=== PATIENT | female | born 1980 | race American Indian/Alaskan Native ===

== ENCOUNTER 2025-01-06 10:57 | Emergency (ER) | payer MEDICAID, OTHER ==
[2025-01-06] MEDS ORDERED: Sodium Chloride 0.9% 10 ML Syringe FLUSH PRN ×2 (11:16)
[2025-01-06 11:28] LABS: BASOPHILS PERCENT AUTO 0.6 % (0.0-1.0); EOSINOPHILS PERCENT AUTO 6.1 % (1.0-3.0); LYMPHOCYTES PERCENT AUTO 28.2 % (20.5-50.1); MONOCYTES PERCENT AUTO 9.8 % (2-8); NEUTROPHILS PERCENT AUTO 55.3 % (42.2-75.2); PLATELET COUNT,PLT 75 10^3/uL (150-450); RED BLOOD CELL COUNT 2.24 10^6/uL (4.2-5.4); WHITE BLOOD CELL COUNT,WBC 3.3 10^3/uL (5.0-10.0)
[2025-01-06 11:45] LABS: INR 1.8 (0.9-1.2)
[2025-01-06 12:03] LABS: ALANINE AMINOTRANSFERASE,ALT 12.0 U/L (14-59); ASPARTATE AMNIOTRANSFERASE,AST 36.0 U/L (15-37); BILIRUBIN TOTAL 5.3 mg/dL (0.2-1.0); BLOOD UREA NITROGEN,BUN 6.0 mg/dL (7-18); CARBON DIOXIDE,CO2 23.0 mmol/L (21-32); CHLORIDE,CL 110.0 mmol/L (98-107); CREATININE 0.86 mg/dL (0.55-1.02); EST CRCL DRUG DOSING (CG) 67.61 mL/min; GLUCOSE RANDOM 90.0 mg/dL (70-99); POTASSIUM,K 2.9 mmol/L (3.5-5.1); PROTEIN TOTAL,TP 7.3 g/dL (6.4-8.2); SODIUM,NA 139.0 mmol/L (136-145)
[2025-01-06 12:13] LABS: A/G RATIO 0.3; ESTIMATED GFR 84.0 mL/min (>=60)
[2025-01-06] MEDS: Potassium Chloride 10 MEQ Tab.ER PO ONE (13:24)
[2025-01-06] MEDS: Ondansetron 4 MG Tab.DIS PO ONE (16:15)
[2025-01-06] MEDS: Ondansetron 4 MG Tab.DIS ONE (16:39)
[2025-01-06] MEDS: Ondansetron 4 MG/2 ML SDV ONE (16:39)
[2025-01-06] MEDS: LORazepam 2 MG/ML SDV IVPUSH ONE (16:55)
[2025-01-06] MEDS: LORazepam 2 MG/ML SDV ONE (17:14)
[2025-01-06 18:10] LABS: LACTIC ACID 4.1 mmol/L (0.4-2.0)
== END 2025-01-06 19:44 ==
LOC: DL.ED 10:57
DX: A41.9 Sepsis, unspecified organism (principal); K74.60 Unspecified cirrhosis of liver; E87.6 Hypokalemia; Z79.899 Other long term (current) drug therapy
CPT/HCPCS: 36415; 71045; 80053; 83605; 83880; 84484; 85025; 85610; 87040; 87077; 87186; 93005; 93010; 96361; 96374; 96375; 99285; A9270; J0692; J2060; J7030